=== PATIENT | male | born 1985 | race African-American/Black ===

== ENCOUNTER 2020-07-23 08:46 | Emergency (ER) | payer SELFPAY ==
[~2020-07-23] VITALS: Ht 175.3 cm; Wt 81.9 kg
[2020-07-23 08:59] VITALS: BP 118/72
[2020-07-23] MEDS ORDERED: ACETAMINOPHEN 500 MG TABLET ONE (09:43)
--- NOTE | 2020-07-23 09:48 | NUR ---
TASK RN: PT SITTING UP ON GURNEY, NO ACUTE DISTRESS NOTED. PT MEDICATED ORDERED FOR 8/10 PAIN. FAMILY AT BEDSIDE. AWAITING FURTHER DISPOSITION.
--- NOTE | 2020-07-23 10:01 | NUR ---
REPORT TO RON COLVIN.
[2020-07-23] MEDS ORDERED: ACETAMINOPHEN 500 MG TABLET PO ONE (10:30)
== END 2020-07-23 10:40 | disposition home or self-care (01) ==
LOC: ED 10:24
DX: S06.0X0A Concussion without loss of consciousness, initial encounter (principal); S00.03XA Contusion of scalp, initial encounter; W01.0XXA Fall on same level from slipping, tripping and stumbling without subsequent striking against object, initial encounter; Y93.89 Activity, other specified; Y92.009 Unspecified place in unspecified non-institutional (private) residence as the place of occurrence of the external cause; Y99.8 Other external cause status
CPT/HCPCS: 99282